=== PATIENT | male | born 1975 | race Caucasian/White ===

== ENCOUNTER 2016-08-09 00:55 | Emergency (ER) | payer OTHER, BC ==
[2016-08-09 01:01] VITALS: RESP 20
[2016-08-09] MEDS ORDERED: TDAP VACCINE 0.5 ML SUS IM ONE ×2 (01:26)
[2016-08-09 01:37] VITALS: TEMP 98.3
[2016-08-09 02:04] VITALS: BP 111/67; PULSE 69; O2SAT 100
[2016-08-09] MEDS ORDERED: IBUPROFEN 400 MG TAB ONE (02:35)
[2016-08-09] MEDS ORDERED: IBUPROFEN 400 MG TAB PO ONE (02:35)
== END 2016-08-09 02:50 | disposition home or self-care (01) | DRG 563 ==
LOC: ED 00:55
DX: S63.601A Unspecified sprain of right thumb, initial encounter (principal); R51 Headache; S50.812A Abrasion of left forearm, initial encounter; S01.511A Laceration without foreign body of lip, initial encounter; S00.81XA Abrasion of other part of head, initial encounter; S00.31XA Abrasion of nose, initial encounter; S80.811A Abrasion, right lower leg, initial encounter; W17.89XA Other fall from one level to another, initial encounter; Y99.0 Civilian activity done for income or pay
CPT/HCPCS: 73110; 90715; 99283